=== PATIENT | male | born 1970 | race Caucasian/White ===

== ENCOUNTER 2018-04-07 16:57 | Emergency (ER) | payer MEDICAID ==
[~2018-04-07] VITALS: Ht 182.9 cm; Wt 97.2 kg
[2018-04-07 17:04] VITALS: BP 127/72
--- NOTE | 2018-04-07 17:21 | NUR ---
PT ARRIVES TO ED WITH C/O UPPER RIGHT QUADRANT PAIN. PT REPORTS HE HAS HAD PANCREATITIS BEFORE. PT DENIES ANY RECENT TRAUMA. PT REPORTS HE HAS NO MEDICAL HX. PT DENIES N/V/D. PT DOES REPORT BLOOD IN STOOL AT THIS TIME. PT CONNECTED TO MONITORS AND CALL LIGHT IN REACH. AWAITING FURHTER ORDERS.
[2018-04-07 17:41] LABS: ALANINE AMINOTRANSFERASE 60 U/L (12-78); ALBUMIN 3.9 g/dL (3.4-5.0); ANION GAP 7 mmol/L (5-15); CALCIUM 8.6 mg/dL (8.5-10.1); CHLORIDE 100 mmol/L (98-107)
[2018-04-07 17:42] LABS: MICROSCOPIC NOT IND
[2018-04-07 17:43] LABS: ALKALINE PHOSPHATASE 89 U/L (45-117); BILIRUBIN,TOTAL 0.3 mg/dL (0.2-1.0); CREATININE 1.02 mg/dL (0.7-1.3); TOTAL PROTEIN 7.7 g/dL (6.4-8.2)
[2018-04-07 17:44] LABS: CULTURE INDICATED? NO
[2018-04-07 17:47] LABS: BASOPHILS # (AUTO) 0.03 x10^3/uL (0-0.1); BASOPHILS % (AUTO) 0 % (0-1); EOSINOPHILS # (AUTO) 0.07 x10^3/uL (0-0.4); EOSINOPHILS % (AUTO) 1 % (1-7); LYMPHOCYTES # (AUTO) 3.09 x10^3/uL (1-3.4); LYMPHOCYTES % (AUTO) 25 % (22-44); MD NO; MEAN CORPUSCULAR HEMOGLOBIN 31.6 pg (27.5-34.5); MEAN CORPUSCULAR HGB CONC 34.5 g/dL (33.2-36.2); MEAN CORPUSCULAR VOLUME 91.8 fL (81-97); MEAN PLATELET VOLUME 9.7 fL (7.4-10.4); MONOCYTES # (AUTO) 0.62 x10^3/uL (0.2-0.8); MONOCYTES % (AUTO) 5 % (2-9); NEUTROPHILS # (AUTO) 8.63 x10^3/uL (1.8-6.8); NEUTROPHILS % (AUTO) 69 % (42-75); PLATELET COUNT 267 x10^3/uL (130-400); RED BLOOD COUNT 4.95 x10^6/uL (4.38-5.82); RED CELL DISTRIBUTION WIDTH 13.5 % (9.4-14.8)
--- NOTE | 2018-04-07 19:07 | NUR ---
PT TO CT.
[2018-04-07] MEDS ORDERED: OMNIPAQUE 350 MG/ML, 100ML BOTTLE ONE (19:20)
--- NOTE | 2018-04-07 20:20 | NUR ---
Patient/Caregiver given discharge instructions and they have confirmed that they understand the instructions. Patient ambulatory with steady gait.
== END 2018-04-07 20:51 | disposition home or self-care (01) ==
LOC: ED 20:05
DX: K62.5 Hemorrhage of anus and rectum (principal); R73.9 Hyperglycemia, unspecified; R05 Cough; R11.0 Nausea
CPT/HCPCS: 36415; 71045; 74177; 76700; 80053; 81003; 83690; 85025; 99284; Q9967

== ENCOUNTER 2018-04-14 05:40 | Emergency (ER) | payer MEDICAID ==
[~2018-04-14] VITALS: Ht 182.9 cm; Wt 100.0 kg
--- NOTE | 2018-04-14 06:00 | NUR ---
EKG DONE IN TRIAGE
--- NOTE | 2018-04-14 06:14 | NUR ---
PT TO ROOM PLACED IN A GOWN ND AWAITING ERP AND ORDERS
[2018-04-14] MEDS ORDERED: METHOCARBAMOL 750 MG TABLET PO ONE (06:30)
[2018-04-14] MEDS ORDERED: METHOCARBAMOL 750 MG TABLET ONE (06:35)
[2018-04-14] MEDS ORDERED: ACETAMINOPHEN 500 MG TABLET ONE (06:58)
[2018-04-14] MEDS ORDERED: ACETAMINOPHEN 500 MG TABLET PO ONE (07:00)
--- NOTE | 2018-04-14 07:05 | NUR ---
BEDSIDE REPORT FROM RN DESMOND, PT CARE ASSUMED AT THIS TIME. PT LAYING PRONE IN BED, WHEN RN ENTERED ROOM TO ADMINISTER TYLENOL PER MD ORDER PT BECAME ANGERY AND STATED THAT HE WANTS TO TALK TO THE DOCTOR HE HAS AN ENLARGE LIVER "ITS ALL OVER MY CHART" AND THAT HE HAS ALREADY TAKEN NEXIUM, A MUSCLE RELAXER AND IBUPROFEN. MD NOTIFIED. PHLEMBOTOMIST AT BEDSIDE TO DRAW BLOOD, FAMILY AT BEDSIDE, PT IN NAD, CALL LIGHT IN REACH. WCTM
[2018-04-14 07:17] LABS: HCT (SEDRATE) 43.6 % (39.2-51.8)
[2018-04-14 07:18] LABS: BASOPHILS # (AUTO) 0.06 x10^3/uL (0-0.1); BASOPHILS % (AUTO) 1 % (0-1); EOSINOPHILS # (AUTO) 0.14 x10^3/uL (0-0.4); EOSINOPHILS % (AUTO) 1 % (1-7); LYMPHOCYTES # (AUTO) 2.83 x10^3/uL (1-3.4); LYMPHOCYTES % (AUTO) 28 % (22-44); MD NO; MEAN CORPUSCULAR HEMOGLOBIN 30.8 pg (27.5-34.5); MEAN CORPUSCULAR HGB CONC 33.6 g/dL (33.2-36.2); MEAN CORPUSCULAR VOLUME 91.6 fL (81-97); MEAN PLATELET VOLUME 9.2 fL (7.4-10.4); MONOCYTES # (AUTO) 0.69 x10^3/uL (0.2-0.8); MONOCYTES % (AUTO) 7 % (2-9); NEUTROPHILS # (AUTO) 6.47 x10^3/uL (1.8-6.8); NEUTROPHILS % (AUTO) 64 % (42-75); PLATELET COUNT 233 x10^3/uL (130-400); RED BLOOD COUNT 4.81 x10^6/uL (4.38-5.82); RED CELL DISTRIBUTION WIDTH 13.1 % (9.4-14.8)
[2018-04-14 07:27] LABS: ALANINE AMINOTRANSFERASE 48 U/L (12-78); ALBUMIN 3.9 g/dL (3.4-5.0); ANION GAP 5 mmol/L (5-15); C-REACTIVE PROTEIN, QUANT 0.73 mg/dL (0.02-0.49); CALCIUM 8.5 mg/dL (8.5-10.1); CHLORIDE 106 mmol/L (98-107); CREATININE 0.95 mg/dL (0.7-1.3)
[2018-04-14 07:32] LABS: ALKALINE PHOSPHATASE 78 U/L (45-117); BILIRUBIN,TOTAL 0.4 mg/dL (0.2-1.0); TROPONIN I < 0.015 ng/mL (0.000-0.045)
[2018-04-14 08:27] VITALS: BP 129/71
== END 2018-04-14 08:28 | disposition home or self-care (01) ==
LOC: ED 06:25
DX: M54.6 Pain in thoracic spine (principal); E16.2 Hypoglycemia, unspecified; F17.210 Nicotine dependence, cigarettes, uncomplicated
CPT/HCPCS: 36415; 72072; 80053; 83690; 84484; 85025; 85651; 86140; 93005; 99284

== ENCOUNTER 2019-01-11 18:07 | Emergency (ER) | payer MEDICAID ==
[~2019-01-11] VITALS: Ht 180.3 cm; Wt 91.7 kg
[2019-01-11 18:15] VITALS: BP 128/76
[2019-01-11] MEDS ORDERED: IBUPROFEN 200 MG TABLET ONE (19:24)
[2019-01-11] MEDS ORDERED: IBUPROFEN 200 MG TABLET PO ONE (19:30)
== END 2019-01-11 19:38 | disposition home or self-care (01) ==
LOC: ED 19:31
DX: M25.512 Pain in left shoulder (principal); F17.210 Nicotine dependence, cigarettes, uncomplicated; Z72.9 Problem related to lifestyle, unspecified
CPT/HCPCS: 99283

== ENCOUNTER 2020-03-09 13:42 | Emergency (ER) | payer MEDICAID ==
[~2020-03-09] VITALS: Ht 182.9 cm; Wt 95.6 kg
--- NOTE | 2020-03-09 13:55 | NUR ---
EKG DONE IN TRIAGE.
--- NOTE | 2020-03-09 14:11 | NUR ---
PT STATES THAT HE AWOKE WITH BURNING EPIGASTRIC PAIN AND VOMITING. PT STATES HE HAS THE CHILLS AND SWEATING ALTERNATELY AFTER VOMITING
[2020-03-09] MEDS ORDERED: SODIUM CHLORIDE FLUSH 10ML SYR IVF ONE (14:30)
[2020-03-09 15:03] LABS: ALANINE AMINOTRANSFERASE 50 U/L (12-78); ALBUMIN 3.9 g/dL (3.4-5.0); ANION GAP 7 mmol/L (5-15); CALCIUM 8.6 mg/dL (8.5-10.1); CHLORIDE 101 mmol/L (98-107); CREATININE 1.12 mg/dL (0.7-1.3)
[2020-03-09 15:05] LABS: BASOPHILS % (AUTO) 1 % (0-1); EOSINOPHILS % (AUTO) 0 % (1-7); LYMPHOCYTES % (AUTO) 3 % (22-44); MEAN CORPUSCULAR HGB CONC 33.8 g/dL (33.2-36.2); MEAN PLATELET VOLUME 9.4 fL (7.4-10.4); MONOCYTES % (AUTO) 3 % (2-9); NEUTROPHILS % (AUTO) 93 % (42-75); PLATELET COUNT 227 x10^3/uL (130-400); RED BLOOD COUNT 4.87 x10^6/uL (4.38-5.82); RED CELL DISTRIBUTION WIDTH 13.6 % (9.4-14.8)
[2020-03-09 15:07] LABS: ALKALINE PHOSPHATASE 80 U/L (45-117); BILIRUBIN,TOTAL 0.6 mg/dL (0.2-1.0); TOTAL PROTEIN 7.9 g/dL (6.4-8.2); TROPONIN I < 0.015 ng/mL (0.000-0.045)
[2020-03-09] MEDS ORDERED: ONDANSETRON 2MG/ML, 2ML ONE (15:12)
[2020-03-09 15:15] LABS: MICROSCOPIC NOT IND
[2020-03-09 15:29] LABS: MD SCAN
[2020-03-09] MEDS ORDERED: ONDANSETRON 2MG/ML, 2ML IVPush ONE (15:30)
[2020-03-09] MEDS ORDERED: OMNIPAQUE 350 MG/ML, 100ML BOTTLE ONE (16:15)
[2020-03-09] MEDS ORDERED: MAALOX/HYOSCYAMINE/LIDOCAINE 45 ML BTL PO ONE (17:00)
[2020-03-09] MEDS ORDERED: MAALOX/HYOSCYAMINE/LIDOCAINE 45 ML BTL ONE (17:06)
[2020-03-09 17:20] VITALS: BP 109/79
--- NOTE | 2020-03-09 17:20 | NUR ---
PT STATES EPIGASTRIC PAIN IMPROVED AFTER DRINKING GI COCKTAIL
--- NOTE | 2020-03-09 17:36 | NUR ---
PT RECEIVED VERBAL DC BUT LEFT BEFORE RECEIVING WRITTEN DISCHARGE.
== END 2020-03-09 17:37 | disposition home or self-care (01) ==
LOC: ED 16:52
DX: K29.00 Acute gastritis without bleeding (principal); R00.0 Tachycardia, unspecified; Z87.891 Personal history of nicotine dependence
CPT/HCPCS: 36415; 71045; 74177; 76700; 80053; 81003; 83690; 84484; 85025; 93005; 96374; 99285; J2405; Q9967